=== PATIENT | male | born 2000 | race Caucasian/White ===

== ENCOUNTER 2023-02-26 22:46 | Emergency (ER) | payer OTHER, SELFPAY ==
[2023-02-26 22:56] VITALS: BP 123/68; PULSE 77; RESP 16; TEMP 36.2; O2SAT 98
[2023-02-26 23:08] VITALS: BP 133/96; PULSE 81; RESP 15; TEMP 36.6; O2SAT 100
--- NOTE | 2023-02-26 23:10 | ED.GENADULT ---
HPI - General Adult General Chief complaint: Skin/Abscess/Foreign Body Stated complaint: wound Time Seen by Provider: 02/26/23 23:03 Source: patient Mode of arrival: ambulatory Limitations: no limitations History of Present Illness HPI narrative: This is a 22-year-old male who presents to the ED with chief complaint of an area of erythema to the right inner thigh ongoing for the past 24 hours. Patient states that there is a central red joan. He is unsure of any insect bites but states he does spend a lot of time outdoors. Denies any fevers, drainage, systemic symptoms. Related Data Allergies Allergy/AdvReac Type Severity Reaction Status Date / Time No Known Allergies Allergy Verified 02/26/23 22:55 Exam Narrative: GENERAL: Well-appearing, well-nourished, and in no acute distress. HEAD: Normocephalic, atraumatic. EYES: PERRLA and EOMI. ENT: Nares clear, no rhinorrhea or epistaxis. Mucous membranes moist. Oropharynx without tonsillar hypertrophy exudate or other lesions. NECK: Supple. No adenopathy or masses. CHEST: No respiratory distress. Clear to auscultation. No wheezes rales or rhonchi HEART: Regular rate and rhythm. No murmur heard. Normal peripheral pulses. ABDOMEN: Soft, nontender, nondistended, normal active bowel sounds. MSK: Normal range of motion. No edema. SKIN: There is a circular area of erythema to the right proximal inner thigh. There is a central dark erythematous lesion. Area of erythema is around 4 centers by 4 cm. NEURO: Alert and oriented x3. No focal deficits. PSYCH: Normal mood and affect. Course Vital Signs Vital signs: Vital Signs Temperature 97.1 F L 02/26/23 22:56 Pulse Rate 77 02/26/23 22:56 Respiratory Rate 16 02/26/23 22:56 Blood Pressure 123/68 02/26/23 22:56 Pulse Oximetry 98 02/26/23 22:56 Oxygen Delivery Room Air 02/26/23 22:56 Temperature 98 F 02/26/23 23:56 Pulse Rate 83 02/26/23 23:56 Respiratory Rate 16 02/26/23 23:56 Blood Pressure 145/86 H 02/26/23 23:56 Pulse Oximetry 99 02/26/23 23:56 Oxygen Delivery Room Air 02/26/23 22:56 Medical Decision Making [facility] Narrative Medical decision making narrative: This is a 22-year-old male presents to the ED with chief complaint of right inner thigh redness for the past day. Vitals are normal. Exam does reveal a 4 x 4 cm of circular erythema with a central lesion. Do suspect a cellulitis with this. Unsure if this is from a insect bite or folliculitis. Prescription for doxycycline given. He is stable for discharge. Skin marker was applied. Return precautions given. Patient is understanding and agreeable with the plan for discharge and follow-up with PCP. Vital Signs Vital Signs: Vital Signs Temperature 97.1 F L 02/26/23 22:56 Pulse Rate 77 02/26/23 22:56 Respiratory Rate 16 02/26/23 22:56 Blood Pressure 123/68 02/26/23 22:56 Pulse Oximetry 98 02/26/23 22:56 Oxygen Delivery Room Air 02/26/23 22:56 Temperature 98 F 02/26/23 23:56 Pulse Rate 83 02/26/23 23:56 Respiratory Rate 16 02/26/23 23:56 Blood Pressure 145/86 H 02/26/23 23:56 Pulse Oximetry 99 02/26/23 23:56 Oxygen Delivery Room Air 02/26/23 22:56 Discharge Plan Discharge Clinical Impression: Cellulitis Patient Disposition: Home, Self-Care Condition: Stable Instructions: Antibiotic Form Additional Instructions: Please take the antibiotics exactly as prescribed for the full week. If you have any new or worsening symptoms like spreading redness, increasing pain or fevers please return to the ER for further evaluation. Please allow the antibiotics a couple of days to clear the infection. Otherwise please follow-up with your primary care doctor. Prescriptions: New doxycycline hyclate 100 mg capsule 100 mg PO BID 7 Days Qty: 14 0RF Follow-up/Referrals: PHYSICIAN NOT ON STAFF,NONSTAFF [Primary Care Provider] - Villa Singleton MD [Physician] - T
[2023-02-26] MEDS: DOXYCYCLINE HYCLATE 100 MG TABLET PO (23:51)
[2023-02-26 23:56] VITALS: BP 145/86; PULSE 83; RESP 16; TEMP 36.6; O2SAT 99
== END 2023-02-26 23:57 | disposition home or self-care (01) ==
LOC: ANHED 23:51
PROVIDERS: Emergency Provider Physician Assistant
DX: L03.115 Cellulitis of right lower limb (principal)
CPT/HCPCS: 99283; A9270